=== PATIENT | female | born 1965 | race Caucasian/White ===

== ENCOUNTER 2016-06-12 16:15 | Emergency (ER) | payer OTHER ==
--- NOTE | ~2016-06-12 | CR72 ---
[facility] A Service of [facility] & [facility] RADIOLOGY TEXT RESULTS PATIENT: BUD HERRERA LOCATION: [facility] : 61 UNIT #: [id number] AGE: [address]: Rhaul Reeves MD SEX: F ORDER DR: [id number] [facility] [address] [place], [place] [address] [id number] MR#: [id number] Acc #: [id number] NAME: BUD HERRERA : 1965 SEX: F STUDY DATE/TIME: 06/12/2016 16:08 UNIT: [facility] ROOM: STUDY DESCRIPTION: CR Chest Single View Portable Attending Physician: Rahul Reeves M.D. Ordering Physician: Ervin Galeana D.O. Primary Care Physician: Alejandro Stringer M.D. MEDICAL IMAGING REPORT This report is preliminary unless electronic signature is present EXAM Portable chest HISTORY 50-year-old female with history of shortness of breath today. COMPARISON 05/02/2016 FINDINGS No acute infiltrate. Calcified granuloma left lung. Heart size normal. IMPRESSION No active disease. Dictated by... Josué Madera M.D. THIS IS AN ELECTRONICALLY VERIFIED REPORT Josué Madera M.D. at 06/13/2016 10:02 AM JOANNE/jennifer TD: 06/13/2016 00:15 JOB #: [id number] MEDICAL IMAGING REPORT Page 1 of 1 COPY
[~2016-06-12 16:15] MED LIST: AUGMENTIN PO; BENTYL20 MG PO; BUSPAR30 MG PO; DOCUSATE SODIU100 MG PO; PERCOCET 51 UDTAB 5/ PO
[2016-06-12 16:23] LABS: BASOPHIL# 0.1 X10e3 (0-0.3); BASOPHIL% 0.7 % (0-2.5); EOSINOPHIL# 0.2 X10e3 (0-0.7); EOSINOPHIL% 1.6 % (0.0-7.0); HEMOGLOBIN 14.5 gm/dL (12.0-16.0); LYMPHOCYTE% 34.8 % (17.0-45.0); MEAN CELL VOLUME 99.6 FL (83-96); MEAN CORPUSCULAR HEMOGLOBIN 32.7 PG (28-34); MEAN CORPUSCULAR HGB CONC 32.8 g/dL (30-36); MEAN PLATELET VOLUME 7.5 FL (6.5-11.5); MONOCYTE# 0.5 X10e3 (0-1.0); MONOCYTE% 4.5 % (3.0-12.0); NEUTROPHIL# 6.6 X10e3 (1.5-7.1); NEUTROPHIL% 58.4 % (40-75); PLATELET COUNT 237 X10e3 (140-420); RED BLOOD COUNT 4.42 X10e (3.90-5.30); RED CELL DISTRIBUTION WIDTH 13.5 % (11.0-15.5); WHITE BLOOD COUNT 11.4 X10e3 (4.0-10.5)
[2016-06-12 16:29] LABS: DIFF IND NO
[2016-06-12 16:53] LABS: ALBUMIN SERUM 4.4 g/dL (3.5-5.0); ALKALINE PHOSPHATASE 153 U/L (32-92); ALT (SGPT) 59 U/L (10-40); AST (SGOT) 152 U/L (10-42); BILIRUBIN, DIRECT 0.4 mg/dL (0.0-0.2); BILIRUBIN,INDIRECT 0.5 mg/dL (0.0-0.9); BILIRUBIN,TOTAL 0.9 mg/dL (0.2-2.0); BLOOD UREA NITROGEN 11 mg/dL (9-23); CALCIUM SERUM 9.3 mg/dL (8.4-10.2); CARBON DIOXIDE 22 mmol/L (22-31); CHLORIDE 110 mmol/L (100-111); CREATININE SERUM 0.4 mg/dL (0.6-1.4); GLOM FILT RATE Estimated 119.8 mL/min (>60); GLUCOSE FASTING 87 mg/dL (70-110); POTASSIUM 3.5 mmol/L (3.5-5.1); PROTEIN TOTAL SERUM 8.1 g/dL (6.0-8.3); SALICYLATE <4.0 mg/dL; SODIUM 148 mmol/L (135-145)
[2016-06-12 16:54] LABS: ACETAMINOPHEN <10 ug/mL
[2016-06-12 16:55] LABS: ALCOHOL BLOOD 412 mg/dL (0)
[2016-06-12 18:18] LABS: AMPHETAMINE NEG (NEG); BARBITURATES NEG (NEG); BENZODIAZEPINES NEG (NEG); COCAINE NEG (NEG); MARIJUANA NEG (NEG); OPIATES NEG (NEG); TRICYCLIC ANTIDEPRESSANTS NEG (NEG); U METHADONE NEG (NEG)
[2016-06-12 18:52] LABS: POC - CKMB 1.3 ng/mL (0.0-7.9); POC - TROPONIN <0.05 ng/mL (<=0.05)
[2016-06-12 18:57] LABS: POC - CKMB <1.0 ng/mL (0.0-7.9); POC - TROPONIN <0.05 ng/mL (<=0.05)
== END 2016-06-13 01:55 | disposition home or self-care (01) ==
LOC: CED 16:15
PROVIDERS: Emergency Medicine
DX: F10.129 Alcohol abuse with intoxication, unspecified (principal); F32.9 Major depressive disorder, single episode, unspecified; J44.9 Chronic obstructive pulmonary disease, unspecified; F17.200 Nicotine dependence, unspecified, uncomplicated
CPT/HCPCS: 36415; 71010; 80048; 80076; 80307; 82553; 84484; 85025; 94640; 96374; 99284; G0480; J2930